=== PATIENT | female | born 1940 | race Caucasian/White ===

== ENCOUNTER 2020-05-07 14:48 | Emergency (ER) | payer MEDICARE, BC ==
[2020-05-07] MEDS ORDERED: Sodium Chloride 0.9% 10 ML Syringe FLUSH PRN (15:02)
[2020-05-07] MEDS: Labetalol 20 MG/4 ML Syringe IVPUSH ONE (15:26)
[2020-05-07 15:34] LABS: CHLORIDE,CL 97 mmol/L (98-107); SODIUM,NA 139 mmol/L (136-145)
[2020-05-07 15:35] LABS: ANION GAP 13.3 mmol/L (10-20)
--- NOTE | 2020-05-07 15:57 | CT ---
[id number] CT/CT Head WO IV EXAM: CT Head WO IV CLINICAL DATA: GAIT DISTURBANCE. COMPARISON STUDY: None FINDINGS: No intracranial hemorrhage, extra-axial fluid collection, mass, or acute ischemia. No hydrocephalus. Mild to moderate changes of chronic small vessel disease. Findings including central prominent diffuse bilateral symmetric parenchymal atrophy as well as gliosis in the subcortical and periventricular white matter. Calvarium intact. Paranasal sinuses and mastoid air cells are clear. IMPRESSION: No acute intracranial findings. Chronic small vessel disease, described above. Torres Eaton MD 05/07/20 1556 Thank you for allowing us to participate in the care of your patient.
--- NOTE | 2020-05-07 16:32 | EDM.PDOC ---
ED HPI GENERAL MEDICAL PROBLEM - General Chief Complaint: Neuro Symptoms/Deficits Stated Complaint: POSSIBLE STROKE Time Seen by Provider: 05/07/20 15:00 Source of Information: Reports: Patient History Limitations: Reports: No Limitations - History of Present Illness INITIAL COMMENTS - FREE TEXT/NARRATIVE: PtClari presents to ER via private vehicle with complaints of R sided paresthesia and decreased coordination of R lower extremity. Onset of symptoms 05/06/2020 at approx. 1500. She states that she was dizzy yesterday at onset of these symptoms, but these symptoms rapidly resolved. She states that she was also having some paresthesia in her R leg, but states that these symptoms stopped around noon today. Denies any headache. She had a watchman device placed in December, and was on eliquis after that. She states that she was transitioned to plavix, and was notified to stop taking that last week. Denies any fever or chills. No cough or chest congestion. Denies any problems w ith speech or ambulation. Denies any history of facial droop. She has been alert to time, date and place. Initial NIH scale was 2, 1 point for sensation and 1 for coordination. She has no pronator drift, lower extremity drift, chest pain or shortness of breath. She currently has a pacemaker. Onset Date: 05/06/20 Location: Reports: Head, Generalized - Related Data Allergies Allergy/AdvReac Type Severity Reaction Status Date / Time lisinopril Allergy Cough Verified 05/07/20 16:20 metronidazole [From Flagyl] Allergy Other Verified 05/07/20 16:20 Adhesive tape Allergy Rash Uncoded 05/07/20 16:20 Xray dye Allergy Anaphylactic Uncoded 05/07/20 16:20 Shock Home Meds: Home Meds Amoxicillin 2 gm PO ASDIRECTED 05/07/20 [History] Aspirin [Aspirin EC] 81 mg PO DAILY 05/07/20 [History] Betamethasone/Clotrimazole [Lotrisone] 1 applic PO BID 05/07/20 [History] Bumetanide [Bumex] 2 mg PO Q2D 05/07/20 [History] Dicyclomine [Bentyl] 10 mg PO QID PRN 05/07/20 [History] Gabapentin [Neurontin] 100 mg PO DAILY 05/07/20 [History] Gabapentin [Neurontin] 300 mg PO BEDTIME 05/07/20 [History] Hydrocodone/Acetaminophen [[place] 5-325 Tablet] 1 tab PO Q6H PRN 05/07/20 [History] Pramipexole [Mirapex] 1 mg PO DAILY 05/07/20 [History] Past Medical History Cardiovascular History: Reports: Afib, Heart Failure, High Cholesterol, Hypertension, Pacemaker, Other (See Below) Other Cardiovascular History: hx atrial tach. PVD. Watchman Musculoskeletal History: Reports: Back Pain, Chronic Neurological History: Reports: Other (See Below) Other Neuro History: Restless legs Endocrine/Metabolic History: Reports: Hypothyroidism Hematologic History: Reports: B12 Deficiency, Other (See Below) Other Hematologic History: MGUS(monoclonal gammopathy of unknown significance) Oncologic (Cancer) History: Reports: Basal Cell Carcinoma Social & Family History - Tobacco Use Tobacco Use Status *Q: Unknown Ever Used Tobacco - Alcohol Use Days Per Week of Alcohol Use: 7 Number of Drinks Per Day: 2 Total Drinks Per Week: 14 - Recreational Drug Use Recreational Drug Use: No ED ROS GENERAL - Review of Systems Review Of Systems: See Below Constitutional: Reports: No Symptoms HEENT: Reports: No Symptoms Respiratory: Reports: No Symptoms Cardiovascular: Reports: No Symptoms Endocrine: Reports: No Symptoms GI/Abdominal: Reports: No Symptoms : Reports: No Symptoms Musculoskeletal: Reports: No Symptoms Skin: Reports: No Symptoms Neurological: Reports: Numbness, Tingling, Weakness Psychiatric: Reports: No Symptoms Hematologic/Lymphatic: Reports: No Symptoms Immunologic: Reports: No Symptoms ED EXAM, GENERAL - Physical Exam Exam: See Below Exam Limited By: No Limitations General Appearance: Alert, WD/WN, No Apparent Distress Eye Exam: Bilateral Eye: EOMI, PERRL Head: Atraumatic, Normocephalic Neck: Normal Inspection, Supple, Non-Tender Respiratory/Chest: No Respiratory Distress, Lungs Clear, No Accessory Muscle Use, Chest Non-Tender Cardiovascular: Normal Peripheral Pulses, Regular Rate, Rhythm, No Edema, No JVD Peripheral Pulses: 4+: Radial (L) GI/Abdominal: Soft, Non-Tender, No Distention, No Mass (Female) Exam: Deferred Rectal (Female) Exam: Deferred Extremities: Normal Inspection, Normal Range of Motion, Non-Tender, Normal Capillary Refill Neurological: Alert, Oriented, CN II-XII Intact, Normal Cognition, Sensory/Motor Deficit, Other (paresthesia to R upper extremity. No pronator drift. No drift in leg. ) Psychiatric: Normal Affect, Normal Mood Skin Exam: Warm, Dry, Intact, Normal Color, No Rash #1 Interpretation EKG Interpretation Comments: Paced/3rd degree heart block Course - Vital Signs Last Recorded V/S: Last Vital Signs Temp 36.0 C L 05/07/20 14:48 Pulse 62 05/07/20 15:26 Resp 20 05/07/20 14:48 BP 154/82 H 05/07/20 16:00 Pulse Ox 92 L 05/07/20 14:48 - Orders/Labs/Meds Orders: Active Orders 24 hr Category Date Time Status EKG Documentation Completion [RC] STAT Care 05/07/20 15:02 Active Sodium Chloride 0.9% [Saline Flush] Med 05/07/20 15:02 Active 10 ml FLUSH ASDIRECTED PRN Peripheral IV Insertion Adult [OM.PC] Routine Oth 05/07/20 15:03 Ordered Medication Orders Sodium Chloride (Saline Flush) 10 ml FLUSH ASDIRECTED PRN PRN Reason: Keep Vein Open Labs: Laboratory Tests 05/07/20 05/07/20 05/07/20 Range/Units 14:56 14:56 14:56 WBC 8.7 (4.0-10.0) x10^3/uL RBC 4.80 (4.00-5.50) x10^6/uL Hgb 16.0 (12.0-16.0) g/dL Hct 48.3 H (33.0-47.0) % MCV 100.6 H (78.0-93.0) fL MCH 33.3 H (26.0-32.0) pg MCHC 33.1 (32.0-36.0) g/dL RDW Coeff of [place] 12.9 (10.0-15.0) % Plt Count 251 (130-400) x10^3/uL Neut % (Auto) 72.6 (50.0-80.0) % Lymph % (Auto) 15.1 L (25.0-50.0) % [place] % (Auto) 10.3 (2.0-11.0) % Eos % (Auto) 1.7 (0.0-4.0) % Baso % (Auto) 0.3 (0.2-1.2) % PT 11.0 (9.5-12.3) SEC INR 1.0 L (2.0-3.5) APTT (25.6-32.8) SEC Sodium 139 (136-145) mmol/L Potassium 3.3 L (3.5-5.1) mmol/L Chloride 97 L (98-107) mmol/L Carbon Dioxide 32 (21-32) mmol/L Anion Gap 13.3 (10-20) mmol/L BUN 14 (7-18) mg/dL Creatinine 1.1 H (0.55-1.02) mg/dL Est Cr Clr Drug Dosing 37.32 mL/min Estimated GFR (MDRD) 48 Glucose 110 H (74-106) mg/dL Calcium 9.6 (8.5-10.1) mg/dL Corrected Calcium 9.60 (8.5-10.1) mg/dL Total Bilirubin 0.9 (0.2-1.0) mg/dL AST 37 (15-37) U/L ALT 29 (14-59) U/L Alkaline Phosphatase 149 H (46-116) U/L Troponin I < 0.017 (<=0.056) ng/mL C-Reactive Protein 0.8 (<=0.9) mg/dL Total Protein 8.1 (6.4-8.2) g/dL Albumin 4.0 (3.4-5.0) g/dL Globulin 4.1 Albumin/Globulin Ratio 0.98 Ethyl Alcohol < 3 (0-3) mg/dL 05/07/20 Range/Units 14:56 WBC (4.0-10.0) x10^3/uL RBC (4.00-5.50) x10^6/uL Hgb (12.0-16.0) g/dL Hct (33.0-47.0) % MCV (78.0-93.0) fL MCH (26.0-32.0) pg MCHC (32.0-36.0) g/dL RDW Coeff of [place] (10.0-15.0) % Plt Count (130-400) x10^3/uL Neut % (Auto) (50.0-80.0) % Lymph % (Auto) (25.0-50.0) % [place] % (Auto) (2.0-11.0) % Eos % (Auto) (0.0-4.0) % Baso % (Auto) (0.2-1.2) % PT (9.5-12.3) SEC INR (2.0-3.5) APTT 26.7 (25.6-32.8) SEC Sodium (136-145) mmol/L Potassium (3.5-5.1) mmol/L Chloride (98-107) mmol/L Carbon Dioxide (21-32) mmol/L Anion Gap (10-20) mmol/L BUN (7-18) mg/dL Creatinine (0.55-1.02) mg/dL Est Cr Clr Drug Dosing mL/min Estimated GFR (MDRD) Glucose (74-106) mg/dL Calcium (8.5-10.1) mg/dL Corrected Calcium (8.5-10.1) mg/dL Total Bilirubin (0.2-1.0) mg/dL AST (15-37) U/L ALT (14-59) U/L Alkaline Phosphatase (46-116) U/L Troponin I (<=0.056) ng/mL C-Reactive Protein (<=0.9) mg/dL Total Protein (6.4-8.2) g/dL Albumin (3.4-5.0) g/dL Globulin Albumin/Globulin Ratio Ethyl Alcohol (0-3) mg/dL Meds: Medications Generic Name Dose Route Start Last Admin Trade Name Freq PRN Reason Stop Dose Admin Sodium Chloride 10 ml 05/07/20 15:02 Saline Flush FLUSH ASDIRECTED PRN Keep Vein Open Discontinued Medications Generic Name Dose Route Start Last Admin Trade Name Freq PRN Reason Stop Dose Admin Labetalol HCl 20 mg 05/07/20 15:04 05/07/20 15:26 Normodyne IVPUSH 05/07/20 15:05 10 mg NOW ONE Administration Protocol Departure - Departure Time of Disposition: 16:36 Disposition: DC/Tfer to [facility] 02 Clinical Impression: CVA (cerebral vascular accident) - Discharge Information Sepsis Event Note (ED) - Evaluation Sepsis Screening Result: No Definite Risk - Focused Exam Vital Signs: Vital Signs Temp Pulse Resp BP Pulse Ox 05/07/20 16:00 154/82 H 05/07/20 15:45 182/99 H 05/07/20 15:26 62 175/84 H 05/07/20 14:55 192/85 H 05/07/20 14:48 36.0 C L 88 20 207/114 H 92 L - Problem List Review Problem List Initiated/Reviewed/Updated: Yes - My Orders Last 24 Hours: My Active Orders 05/07/20 15:02 EKG Documentation Completion [RC] STAT Sodium Chloride 0.9% [Saline Flush] 10 ml FLUSH ASDIRECTED PRN 05/07/20 15:03 Peripheral IV Insertion Adult [OM.PC] Routine - Assessment/Plan Last 24 Hours: My Active Orders 05/07/20 15:02 EKG Documentation Completion [RC] STAT Sodium Chloride 0.9% [Saline Flush] 10 ml FLUSH ASDIRECTED PRN 05/07/20 15:03 Peripheral IV Insertion Adult [OM.PC] Routine Plan: Pt. will be transferred to [facility] in [place]. Dr. Becerra is accepting. Pt. does not meet criteria for TPA/intervention, as her symptoms have been present for over 24 hours. Pt. will need an echo, carotid US, and further workup. All questions were answered.
== END 2020-05-07 17:40 | disposition short-term general hospital (02) ==
LOC: VM.ED 14:48
DX: I63.9 Cerebral infarction, unspecified (principal); I48.91 Unspecified atrial fibrillation; I11.0 Hypertensive heart disease with heart failure; I50.9 Heart failure, unspecified; Z88.8 Allergy status to other drugs, medicaments and biological substances; Z88.1 Allergy status to other antibiotic agents; Z91.048 Other nonmedicinal substance allergy status; Z91.041 Radiographic dye allergy status; Z79.82 Long term (current) use of aspirin; Z79.899 Other long term (current) drug therapy
CPT/HCPCS: 36415; 70450; 80053; 80307; 84484; 85025; 85610; 85730; 86140; 93005; 93010; 96374; 99284; 99285-25; J3490

== ENCOUNTER 2020-06-22 15:44 | Emergency (ER) | payer MEDICARE, BC ==
[2020-06-22] MEDS: Sodium Chloride 0.9% 1,000 ML IV ONE ×2 (15:55→18:43)
[2020-06-22] MEDS ORDERED: Sodium Chloride 0.9% 10 ML Syringe FLUSH PRN (16:05)
[2020-06-22] MEDS ORDERED: Ondansetron 4 MG/2 ML SDV IVPUSH ONE (16:05)
--- NOTE | 2020-06-22 16:28 | EDM.PDOC ---
ED HPI GENERAL MEDICAL PROBLEM - General Chief Complaint: Gastrointestinal Problem Stated Complaint: LATHARGIC Time Seen by Provider: 06/22/20 15:48 Source of Information: Reports: Patient - History of Present Illness INITIAL COMMENTS - FREE TEXT/NARRATIVE: Kusum is a 79 y/o female who is brought to the ER by her neurosurgical nurse practitioner, Yovanny, after she became so tired and developed the diarrhea. She reports not feeling well on Sunday night and she started to feel more tired and then had an upset stomach. On Sunday, she continued to have an upset stomach and was very nauseated. She felt like vomiting, but did not, then today she continued to have an upset stomach and then started to have the diarrhea. She reports going 5 times today and feeling worse. She is very tired and reports just wanting to sleep. She has felt hot and cold. Lower Abdominal Pain Score (Numeric/FACES): 6 - Related Data Allergies Allergy/AdvReac Type Severity Reaction Status Date / Time lisinopril Allergy Cough Verified 06/22/20 16:06 metoprolol Allergy Headache Verified 06/22/20 16:06 metronidazole [From Flagyl] Allergy Other Verified 06/22/20 16:06 Adhesive tape Allergy Rash Uncoded 05/07/20 16:20 Xray dye Allergy Anaphylactic Uncoded 05/07/20 16:20 Shock Home Meds: Home Meds Amoxicillin 2 gm PO ASDIRECTED 05/07/20 [History] Aspirin [Aspirin EC] 81 mg PO DAILY 05/07/20 [History] Betamethasone/Clotrimazole [Lotrisone] 1 applic PO BID 05/07/20 [History] Bumetanide [Bumex] 2 mg PO Q2D 05/07/20 [History] Dicyclomine [Bentyl] 10 mg PO QID PRN 05/07/20 [History] Gabapentin [Neurontin] 100 mg PO BID 05/07/20 [History] Gabapentin [Neurontin] 300 mg PO BEDTIME 05/07/20 [History] Hydrocodone/Acetaminophen [[place] 5-325 Tablet] 1 tab PO Q6H PRN 05/07/20 [History] Pramipexole [Mirapex] 1 mg PO DAILY 05/07/20 [History] Apixaban [Eliquis] 5 mg PO BID 06/22/20 [History] Hydrocortisone [Hydrocortisone 2.5% Crm] 30 gm TOP BID PRN 06/22/20 [History] Nitroglycerin [Nitrostat] 0.4 mg SL ASDIRECTED PRN 06/22/20 [History] Ondansetron [Ondansetron ODT] 4 mg PO Q6H PRN #15 tab.rapdis 06/22/20 [Rx] Triamcinolone Acetonide [Kenalog 0.1% Crm] 15 gm TOP BID 06/22/20 [History] metroNIDAZOLE [Metrogel-Vaginal] 70 gm TOP DAILY 06/22/20 [History] Past Medical History Cardiovascular History: Reports: Afib, Heart Failure, High Cholesterol, Hypertension, Pacemaker, Other (See Below) Other Cardiovascular History: hx atrial tach. PVD. Watchman Musculoskeletal History: Reports: Back Pain, Chronic Neurological History: Reports: Other (See Below) Other Neuro History: Restless legs Endocrine/Metabolic History: Reports: Hypothyroidism Hematologic History: Reports: B12 Deficiency, Other (See Below) Other Hematologic History: MGUS(monoclonal gammopathy of unknown significance) Oncologic (Cancer) History: Reports: Basal Cell Carcinoma Review of Systems - Review of Systems Review Of Systems: See Below Constitutional: Reports: Chills, Fever, Weakness Eyes: Reports: No Symptoms Ears: Reports: No Symptoms Nose: Reports: No Symptoms Mouth/Throat: Reports: No Symptoms Respiratory: Reports: No Symptoms Cardiovascular: Reports: No Symptoms GI/Abdominal: Reports: Abdominal Pain, Decreased Appetite, Diarrhea, Nausea Genitourinary: Reports: No Symptoms Musculoskeletal: Reports: No Symptoms Skin: Reports: No Symptoms Neurological: Reports: No Symptoms Psychiatric: Reports: No Symptoms ED EXAM, GENERAL - Physical Exam Exam: See Below General Appearance: Alert, WD/WN, No Apparent Distress (Elderly female, lying on ER cart. She is curled up on her side and does not appear to feel well, alt jane she does wake up and answer questions.) Eye Exam: Bilateral Eye: PERRL Ears: Normal External Exam, Normal Canal, Hearing Grossly Normal, Normal TMs Nose: Normal Inspection, Normal Mucosa Throat/Mouth: Normal Inspection, Normal Lips, Normal Oropharynx, Normal Voice Head: Atraumatic, Normocephalic Neck: Normal Inspection, Supple Respiratory/Chest: No Respiratory Distress, Lungs Clear, Normal Breath Sounds, Chest Non-Tender Cardiovascular: Normal Peripheral Pulses, Regular Rate, Rhythm GI/Abdominal: Soft, No Organomegaly, No Distention, No Mass, Abnormal Bowel Sounds (hyperactive) (Female) Exam: Deferred Rectal (Female) Exam: Deferred Back Exam: Normal Inspection Extremities: Normal Inspection, Normal Range of Motion, No Pedal Edema, Normal Capillary Refill Neurological: Alert, Oriented, CN II-XII Intact, Normal Cognition, No Motor/ Sensory Deficits Psychiatric: Normal Affect, Normal Mood Skin Exam: Warm, Dry, Intact, Normal Color Lymphatic: No Adenopathy Course - Vital Signs Text/Narrative:: 1548 The patient was seen by the LIVE IN CAREGIVER. Labs ordered. She was given a lier of NS and Zofran 4mg IVP. 1829 IV fluids completed.Labs reviewed. CBC neg. CMP notes AST=42, Snzwst=865, Wspqmer=403. Amylase=20, Lipae=93. CRP=1.0. Patient not feeling much better. Compazine 10mg IVP ordered and additional NS. Abd/Pelvis W Contrast CT ordered. [address] results returned and negative study noted. Patient rested and now reports that she is feeling better. Feel like she can go home and rest. Other than a very mild decrease in her sodium, all other labs including her UA were negative. Her questions were answered. Will plan to send her home when her neurosurgical nurse practitioner gets here to the ER. Will send her with Zofran ODT. Stool Cx was submitted to lab and results pending. Patient remained stable until departure with her neurosurgical nurse practitioner, Yovanny. She was given written instructions. Last Recorded V/S: Last Vital Signs Temp 36.9 C 06/22/20 15:50 Pulse 72 06/22/20 17:50 Resp 16 06/22/20 17:50 BP 156/88 H 06/22/20 17:50 Pulse Ox 97 06/22/20 17:50 - Orders/Labs/Meds Orders: Active Orders 24 hr Category Date Time Status MISC TEST Routine Lab 06/22/20 16:40 Received STOOL CULTURE [MREF] Stat Lab 06/22/20 16:40 Received Sodium Chloride 0.9% [Saline Flush] Med 06/22/20 16:05 Active 10 ml FLUSH ASDIRECTED PRN Saline Lock Insert [OM.PC] Stat Oth 06/22/20 16:05 Ordered Medication Orders Sodium Chloride (Saline Flush) 10 ml FLUSH ASDIRECTED PRN PRN Reason: Keep Vein Open Labs: Laboratory Tests 06/22/20 06/22/20 06/22/20 Range/Units 15:40 15:50 15:50 WBC 9.0 (4.0-10.0) x10^3/uL RBC 4.66 (4.00-5.50) x10^6/uL Hgb 15.4 (12.0-16.0) g/dL Hct 46.7 (33.0-47.0) % MCV 100.2 H (78.0-93.0) fL MCH 33.0 H (26.0-32.0) pg MCHC 33.0 (32.0-36.0) g/dL RDW Coeff of [place] 12.3 (10.0-15.0) % Plt Count 249 (130-400) x10^3/uL Neut % (Auto) 80.2 H (50.0-80.0) % Lymph % (Auto) 10.8 L (25.0-50.0) % [place] % (Auto) 7.9 (2.0-11.0) % Eos % (Auto) 0.9 (0.0-4.0) % Baso % (Auto) 0.2 (0.2-1.2) % Sodium 135 L (136-145) mmol/L Potassium 4.1 (3.5-5.1) mmol/L Chloride 101 (98-107) mmol/L Carbon Dioxide 28 (21-32) mmol/L Anion Gap 10.1 (5-15) mmol/L BUN 9 (7-18) mg/dL Creatinine 0.9 (0.55-1.02) mg/dL Est Cr Clr Drug Dosing 45.61 mL/min Estimated GFR (MDRD) > 60 Glucose 129 H (74-106) mg/dL Calcium 9.5 (8.5-10.1) mg/dL Corrected Calcium 9.74 (8.5-10.1) mg/dL Magnesium 2.0 (1.8-2.4) mg/dL Total Bilirubin 1.2 H (0.2-1.0) mg/dL AST 43 H (15-37) U/L ALT 46 (14-59) U/L Alkaline Phosphatase 165 H (46-116) U/L C-Reactive Protein 1.0 H (<=0.9) mg/dL Total Protein 7.9 (6.4-8.2) g/dL Albumin 3.7 (3.4-5.0) g/dL Globulin 4.2 Albumin/Globulin Ratio 0.88 Amylase 20 L (25-115) U/L Lipase 93 (73-393) U/L Urine Color (YELLOW) Urine Appearance (CLEAR) Urine pH (5.0-8.0) Ur Specific [place] Urine Protein (NEGATIVE) mg/dL Urine Glucose (UA) (NEGATIVE) mg/dL Urine Ketones (NEGATIVE) mg/dL Urine Occult Blood (NEGATIVE) Urine Nitrite (NEGATIVE) Urine Bilirubin (NEGATIVE) Urine Urobilinogen (0.2) EU/dL Ur Leukocyte Esterase (NEGATIVE) Urine RBC (NOT SEEN) /HPF Urine WBC (NOT SEEN) /HPF Ur Squamous Epith Cells (NEGATIVE) /HPF Urine Bacteria (NEGATIVE) /HPF Urine Mucus (NEGATIVE) /LPF Urinalysis Comment SARS CoV-2 RNA Rapid SAMANTA Negative (NEGATIVE) 06/22/20 Range/Units 16:40 WBC (4.0-10.0) x10^3/uL RBC (4.00-5.50) x10^6/uL Hgb (12.0-16.0) g/dL Hct (33.0-47.0) % MCV (78.0-93.0) fL MCH (26.0-32.0) pg MCHC (32.0-36.0) g/dL RDW Coeff of [place] (10.0-15.0) % Plt Count (130-400) x10^3/uL Neut % (Auto) (50.0-80.0) % Lymph % (Auto) (25.0-50.0) % [place] % (Auto) (2.0-11.0) % Eos % (Auto) (0.0-4.0) % Baso % (Auto) (0.2-1.2) % Sodium (136-145) mmol/L Potassium (3.5-5.1) mmol/L Chloride (98-107) mmol/L Carbon Dioxide (21-32) mmol/L Anion Gap (5-15) mmol/L BUN (7-18) mg/dL Creatinine (0.55-1.02) mg/dL Est Cr Clr Drug Dosing mL/min Estimated GFR (MDRD) Glucose (74-106) mg/dL Calcium (8.5-10.1) mg/dL Corrected Calcium (8.5-10.1) mg/dL Magnesium (1.8-2.4) mg/dL Total Bilirubin (0.2-1.0) mg/dL AST (15-37) U/L ALT (14-59) U/L Alkaline Phosphatase (46-116) U/L C-Reactive Protein (<=0.9) mg/dL Total Protein (6.4-8.2) g/dL Albumin (3.4-5.0) g/dL Globulin Albumin/Globulin Ratio Amylase (25-115) U/L Lipase (73-393) U/L Urine Color Yellow (YELLOW) Urine Appearance Cloudy H (CLEAR) Urine pH 8.5 H (5.0-8.0) Ur Specific [place] 1.025 Urine Protein 100 H (NEGATIVE) mg/dL Urine Glucose (UA) Negative (NEGATIVE) mg/dL Urine Ketones Negative (NEGATIVE) mg/dL Urine Occult Blood Trace-intact H (NEGATIVE) Urine Nitrite Negative (NEGATIVE) Urine Bilirubin Negative (NEGATIVE) Urine Urobilinogen 0.2 (0.2) EU/dL Ur Leukocyte Esterase Negative (NEGATIVE) Urine RBC 0-5 (NOT SEEN) /HPF Urine WBC 0-5 (NOT SEEN) /HPF Ur Squamous Epith Cells Rare (NEGATIVE) /HPF Urine Bacteria Not seen (NEGATIVE) /HPF Urine Mucus Not seen (NEGATIVE) /LPF Urinalysis Comment See note SARS CoV-2 RNA Rapid SAMANTA (NEGATIVE) Meds: Medications Generic Name Dose Route Start Last Admin Trade Name Freq PRN Reason Stop Dose Admin Sodium Chloride 10 ml 06/22/20 16:05 Saline Flush FLUSH ASDIRECTED PRN Keep Vein Open Discontinued Medications Generic Name Dose Route Start Last Admin Trade Name Freq PRN Reason Stop Dose Admin Sodium Chloride 1,000 mls @ 999 mls/hr 06/22/20 16:05 06/22/20 18:43 Normal Saline IV 06/22/20 17:05 999 mls/hr ONETIME ONE Administration Iopamidol 100 ml 06/22/20 19:02 06/22/20 19:03 Isovue-300 (61%) IVPUSH 06/22/20 19:03 100 ml ONETIME ONE Administration Ketorolac Tromethamine 15 mg 06/22/20 18:36 06/22/20 18:43 Toradol IVPUSH 06/22/20 18:37 15 mg ONETIME ONE Administration Ondansetron HCl 4 mg 06/22/20 16:05 06/22/20 16:35 Zofran IVPUSH 06/22/20 16:06 4 mg ONETIME ONE Administration Prochlorperazine Edisylate 10 mg 06/22/20 18:36 06/22/20 18:43 Compazine IV 06/22/20 18:37 10 mg ONETIME ONE Administration Departure - Departure Time of Disposition: 19:48 Disposition: Home, Self-Care 01 Condition: Good Clinical Impression: Diarrhea, Nausea - Discharge Information *PRESCRIPTION DRUG MONITORING PROGRAM REVIEWED*: Not Applicable *COPY OF PRESCRIPTION DRUG MONITORING REPORT IN PATIENT [place]: Not Applicable Prescriptions: RX: Ondansetron [Ondansetron ODT] 4 mg PO Q6H PRN #15 tab.rapdis PRN Reason: Nausea Instructions: Diarrhea, Adult, Nausea, Adult, [id number] Referrals: Mac Novak NP [Primary Care Provider] - Forms: ED Department Discharge Additional Instructions: -Ondanestron ODT 4mg orall every 4-6 hours as needed for nausea #2(ER) #15(Rx) -Stay well hydrated. Advance your diet as you are able. -Rest as much as you need to. -If your symptoms are worse or you are not improving, follow up with your primary care provider or return to the ER for any concerns. Sepsis Event Note (ED) - Focused Exam Vital Signs: Vital Signs Temp Pulse Resp BP Pulse Ox 06/22/20 17:50 72 16 156/88 H 97 06/22/20 15:50 36.9 C 79 16 176/90 H 97 - My Orders Last 24 Hours: My Active Orders 06/22/20 16:05 Sodium Chloride 0.9% [Saline Flush] 10 ml FLUSH ASDIRECTED PRN Saline Lock Insert [OM.PC] Stat 06/22/20 16:40 MISC TEST Routine STOOL CULTURE [MREF] Stat - Assessment/Plan Last 24 Hours: My Active Orders 06/22/20 16:05 Sodium Chloride 0.9% [Saline Flush] 10 ml FLUSH ASDIRECTED PRN Saline Lock Insert [OM.PC] Stat 06/22/20 16:40 MISC TEST Routine STOOL CULTURE [MREF] Stat
[2020-06-22 16:31] LABS: CHLORIDE,CL 101 mmol/L (98-107); SODIUM,NA 135 mmol/L (136-145)
[2020-06-22 16:33] LABS: ANION GAP 10.1 mmol/L (5-15)
[2020-06-22] MEDS ORDERED: Ketorolac 30 MG/ML SDV IVPUSH ONE (18:36)
[2020-06-22] MEDS ORDERED: Prochlorperazine 10 MG/2 ML SDV IV ONE (18:36)
[2020-06-22] MEDS ORDERED: Iopamidol 612 MG/ML 100 ML Bottle IVPUSH ONE (19:02)
--- NOTE | 2020-06-22 19:29 | CT ---
[id number] CT/CT Abdomen Pelvis W IV EXAM: CT Abdomen Pelvis W IV CLINICAL DATA: ABDOMINAL PAIN DIARRHEA COMPARISON: NO PREVIOUS SIMILAR EXAM IS AVAILABLE. FINDINGS: The liver and spleen are unremarkable. The kidneys and adrenals show no abnormality. The aorta and pancreas are within normal limits. There is no bowel distention. There is no bowel wall thickening either. There is no free fluid or free air. There is no adenopathy. The pelvis shows no mass, free fluid, abscess, inflammatory change, or adenopathy. The gallbladder, appendix, uterus, and ovaries are not seen Imaging was limited primarily to arterial phase IMPRESSION: NO ACUTE PROCESS. Eduardo Wolf MD 06/22/20 [id number] Thank you for allowing us to participate in the care of your patient.
[2020-06-22] MEDS ORDERED: Take Home: Ondansetron 4 MG Tab.DIS, 2 Tab Pack PO ONE (19:49)
== END 2020-06-22 20:07 | disposition home or self-care (01) ==
LOC: VM.ED 15:44
DX: R19.7 Diarrhea, unspecified (principal); R11.0 Nausea; I48.91 Unspecified atrial fibrillation; E78.00 Pure hypercholesterolemia, unspecified; I11.0 Hypertensive heart disease with heart failure; I50.9 Heart failure, unspecified; E03.9 Hypothyroidism, unspecified; Z20.822 Contact with and (suspected) exposure to COVID-19; Z88.8 Allergy status to other drugs, medicaments and biological substances; Z91.041 Radiographic dye allergy status; Z91.048 Other nonmedicinal substance allergy status; Z79.82 Long term (current) use of aspirin; Z79.01 Long term (current) use of anticoagulants; Z79.899 Other long term (current) drug therapy; Z88.1 Allergy status to other antibiotic agents
CPT/HCPCS: 74177; 80053; 81001; 82150; 83690; 83735; 85025; 86140; 87045; 87046; 96374; 96375; 99284; 99284-25; A9270-GY; J0780; J1885; J2405; J7030; Q9967; U0002

== ENCOUNTER 2020-07-24 17:27 | Emergency (ER) | payer MEDICARE, BC ==
--- NOTE | 2020-07-24 17:56 | EDM.PDOC ---
ED HPI GENERAL MEDICAL PROBLEM - General Stated Complaint: stomach hurts Time Seen by Provider: 07/24/20 17:30 Source of Information: Reports: Patient History Limitations: Reports: No Limitations - History of Present Illness INITIAL COMMENTS - FREE TEXT/NARRATIVE: Patient comes emergency department today with complaints of urinary frequency and dysuria and back pain. This patient has had kind of a bilateral mid back pain for the past couple of months even before her last ER visit in June last month. After her ER visit she continued to have the mid back pain and has gotten worse since a fall a few days after the ER visit in june when she was walking on the steps fell landing on her buttocks and has had same but worse pain in the mid back . Today she noticed that she had urinary frequency and dysuria. She has chills no fevers. Nausea and upset stomach without vomiting. No chest pain no shortness of breath or difficulty breathing. No cough or congestion. No vaginal bleeding or discharge. No rectal bleeding. No diarrhea. No black or tarry stools. No Covid exposure no Covid symptoms. She has had a urinary tract infection in the past with sepsis and is concerns for that. Abdominal Pain Score (Numeric/FACES): 6 - Related Data Allergies Allergy/AdvReac Type Severity Reaction Status Date / Time lisinopril Allergy Cough Verified 07/25/20 01:16 metoprolol Allergy Headache Verified 07/25/20 01:16 metronidazole [From Flagyl] Allergy Other Verified 07/25/20 01:16 Adhesive tape Allergy Rash Uncoded 07/25/20 01:16 Xray dye Allergy Anaphylactic Uncoded 07/25/20 01:16 Shock Home Meds: Home Meds Amoxicillin 2 gm PO ASDIRECTED 05/07/20 [History] Aspirin [Aspirin EC] 81 mg PO DAILY 05/07/20 [History] Betamethasone/Clotrimazole [Lotrisone] 1 applic PO BID 05/07/20 [History] Bumetanide [Bumex] 2 mg PO Q2D 05/07/20 [History] Dicyclomine [Bentyl] 10 mg PO QID PRN 05/07/20 [History] Gabapentin [Neurontin] 100 mg PO BID 05/07/20 [History] Gabapentin [Neurontin] 300 mg PO BEDTIME 05/07/20 [History] Hydrocodone/Acetaminophen [[place] 5-325 Tablet] 1 tab PO Q6H PRN 05/07/20 [History] Pramipexole [Mirapex] 1 mg PO DAILY 05/07/20 [History] Apixaban [Eliquis] 5 mg PO BID 06/22/20 [History] Hydrocortisone [Hydrocortisone 2.5% Crm] 30 gm TOP BID PRN 06/22/20 [History] Nitroglycerin [Nitrostat] 0.4 mg SL ASDIRECTED PRN 06/22/20 [History] Ondansetron [Ondansetron ODT] 4 mg PO Q6H PRN #15 tab.rapdis 06/22/20 [Rx] Triamcinolone Acetonide [Kenalog 0.1% Crm] 15 gm TOP BID 06/22/20 [History] metroNIDAZOLE [Metrogel-Vaginal] 70 gm TOP DAILY 06/22/20 [History] Fluconazole [Diflucan] 100 mg PO DAILY #14 tablet 07/24/20 [Rx] Past Medical History Cardiovascular History: Reports: Afib, Heart Failure, High Cholesterol, Hypertension, Pacemaker, Other (See Below) Other Cardiovascular History: hx atrial tach. PVD. Watchman Musculoskeletal History: Reports: Back Pain, Chronic Neurological History: Reports: CVA, Other (See Below) Other Neuro History: Restless legs Endocrine/Metabolic History: Reports: Hypothyroidism Hematologic History: Reports: B12 Deficiency, Other (See Below) Other Hematologic History: MGUS(monoclonal gammopathy of unknown significance) Oncologic (Cancer) History: Reports: Basal Cell Carcinoma - Past Surgical History Cardiovascular Surgical History: Reports: Pacer ED ROS GENERAL - Review of Systems Review Of Systems: Comprehensive ROS is negative, except as noted in HPI. ED EXAM, RENAL/ - Physical Exam Exam: See Below Exam Limited By: No Limitations General Appearance: Alert, WD/WN, No Apparent Distress Eye Exam: Bilateral Eye: EOMI Ears: Hearing Loss Nose: Normal Inspection Throat/Mouth: Normal Inspection Head: Atraumatic Respiratory/Chest: No Respiratory Distress, Lungs Clear, Normal Breath Sounds, No Accessory Muscle Use, Chest Non-Tender Cardiovascular: Normal Peripheral Pulses, Regular Rate, Rhythm GI/Abdominal: Normal Bowel Sounds, Soft, Non-Tender (Female) Exam: Deferred Rectal (Female) Exam: Deferred Back Exam: Normal Inspection (other than CVA tenderness), Full Range of Motion, CVA Tenderness (L), CVA Tenderness (R). No: Paraspinal Tenderness, Vertebral Tenderness Extremities: Normal Inspection, Normal Range of Motion, Normal Capillary Refill Neurological: Alert, Oriented, CN II-XII Intact, Normal Cognition, No Mo tor/Sensory Deficits Psychiatric: Normal Affect, Normal Mood Skin Exam: Warm, Dry, Intact, Normal Color, No Rash Course - Vital Signs Last Recorded V/S: Last Vital Signs Temp 98.0 F 07/24/20 17:58 Pulse 60 07/24/20 18:22 Resp 16 07/24/20 18:22 BP 180/97 H 07/24/20 20:33 Pulse Ox 95 07/24/20 18:22 - Orders/Labs/Meds Orders: Active Orders 24 hr Category Date Time Status Abdomen Pelvis wo Cont [CT] Stat Exams 07/24/20 18:32 Taken CULTURE BLOOD [BC] Stat Lab 07/24/20 17:52 Results CULTURE BLOOD [BC] Stat Lab 07/24/20 18:03 Results Blood Culture x2 Reflex Set [OM.PC] Stat Oth 07/24/20 17:42 Ordered Peripheral IV Insertion Adult [OM.PC] Stat Oth 07/24/20 17:41 Ordered Labs: Laboratory Tests 07/24/20 07/24/20 07/24/20 Range/Units 17:35 17:52 17:52 WBC 8.5 (4.0-10.0) x10^3/uL RBC 4.97 (4.00-5.50) x10^6/uL Hgb 16.0 (12.0-16.0) g/dL Hct 48.1 H (33.0-47.0) % MCV 96.8 H D (78.0-93.0) fL MCH 32.2 H (26.0-32.0) pg MCHC 33.3 (32.0-36.0) g/dL RDW Coeff of Osman 12.6 (10.0-15.0) % Plt Count 298 (130-400) x10^3/uL Neut % (Auto) 80.3 H (50.0-80.0) % Lymph % (Auto) 11.9 L (25.0-50.0) % Larue % (Auto) 6.6 (2.0-11.0) % Eos % (Auto) 0.8 (0.0-4.0) % Baso % (Auto) 0.4 (0.2-1.2) % Sodium 137 (136-145) mmol/L Potassium 4.3 (3.5-5.1) mmol/L Chloride 100 (98-107) mmol/L Carbon Dioxide 26 (21-32) mmol/L Anion Gap 15.3 H (5-15) mmol/L BUN 11 (7-18) mg/dL Creatinine 1.0 (0.55-1.02) mg/dL Est Cr Clr Drug Dosing 41.05 mL/min Estimated GFR (MDRD) 53 Glucose 127 H (74-106) mg/dL Lactic Acid (0.4-2.0) mmol/L Calcium 9.6 (8.5-10.1) mg/dL Corrected Calcium 9.76 (8.5-10.1) mg/dL Total Bilirubin 1.0 (0.2-1.0) mg/dL AST 46 H (15-37) U/L ALT 34 (14-59) U/L Alkaline Phosphatase 197 H (46-116) U/L C-Reactive Protein 0.8 (<=0.9) mg/dL Total Protein 8.2 (6.4-8.2) g/dL Albumin 3.8 (3.4-5.0) g/dL Globulin 4.4 Albumin/Globulin Ratio 0.86 Lipase (73-393) U/L Urine Color Yellow (YELLOW) Urine Appearance Cloudy H (CLEAR) Urine pH 5.5 (5.0-8.0) Ur Specific [place] >=1.030 Urine Protein 100 H (NEGATIVE) mg/dL Urine Glucose (UA) Negative (NEGATIVE) mg/dL Urine Ketones Trace H (NEGATIVE) mg/dL Urine Occult Blood Small H (NEGATIVE) Urine Nitrite Negative (NEGATIVE) Urine Bilirubin Moderate H (NEGATIVE) Urine Urobilinogen 0.2 (0.2) EU/dL Ur Leukocyte Esterase Negative (NEGATIVE) Urine RBC 0-5 (NOT SEEN) /HPF Urine WBC 0-5 (NOT SEEN) /HPF Ur Squamous Epith Cells Many H (NEGATIVE) /HPF Urine Bacteria Not seen (NEGATIVE) /HPF Urine Mucus Rare H (NEGATIVE) /LPF Urine Yeast (Budding) Many Urinalysis Comment See note 07/24/20 07/24/20 Range/Units 17:52 17:52 WBC (4.0-10.0) x10^3/uL RBC (4.00-5.50) x10^6/uL Hgb (12.0-16.0) g/dL Hct (33.0-47.0) % MCV (78.0-93.0) fL MCH (26.0-32.0) pg MCHC (32.0-36.0) g/dL RDW Coeff of Osman (10.0-15.0) % Plt Count (130-400) x10^3/uL Neut % (Auto) (50.0-80.0) % Lymph % (Auto) (25.0-50.0) % Larue % (Auto) (2.0-11.0) % Eos % (Auto) (0.0-4.0) % Baso % (Auto) (0.2-1.2) % Sodium (136-145) mmol/L Potassium (3.5-5.1) mmol/L Chloride (98-107) mmol/L Carbon Dioxide (21-32) mmol/L Anion Gap (5-15) mmol/L BUN (7-18) mg/dL Creatinine (0.55-1.02) mg/dL Est Cr Clr Drug Dosing mL/min Estimated GFR (MDRD) Glucose (74-106) mg/dL Lactic Acid 1.2 (0.4-2.0) mmol/L Calcium (8.5-10.1) mg/dL Corrected Calcium (8.5-10.1) mg/dL Total Bilirubin (0.2-1.0) mg/dL AST (15-37) U/L ALT (14-59) U/L Alkaline Phosphatase (46-116) U/L C-Reactive Protein (<=0.9) mg/dL Total Protein (6.4-8.2) g/dL Albumin (3.4-5.0) g/dL Globulin Albumin/Globulin Ratio Lipase 100 (73-393) U/L Urine Color (YELLOW) Urine Appearance (CLEAR) Urine pH (5.0-8.0) Ur Specific [place] Urine Protein (NEGATIVE) mg/dL Urine Glucose (UA) (NEGATIVE) mg/dL Urine Ketones (NEGATIVE) mg/dL Urine Occult Blood (NEGATIVE) Urine Nitrite (NEGATIVE) Urine Bilirubin (NEGATIVE) Urine Urobilinogen (0.2) EU/dL Ur Leukocyte Esterase (NEGATIVE) Urine RBC (NOT SEEN) /HPF Urine WBC (NOT SEEN) /HPF Ur Squamous Epith Cells (NEGATIVE) /HPF Urine Bacteria (NEGATIVE) /HPF Urine Mucus (NEGATIVE) /LPF Urine Yeast (Budding) Urinalysis Comment Meds: Medications Discontinued Medications Generic Name Dose Route Start Last Admin Trade Name Freq PRN Reason Stop Dose Admin Hydrocodone Bitart/Acetaminophen 2 packet 07/24/20 21:03 07/24/20 21:22 Take Home: Acetam/Hydrocodon 325-5 Mg, 5 Pack PO 07/24/20 21:04 2 packet ONETIME ONE Administration Aspirin 324 mg 07/24/20 20:53 07/24/20 21:26 Aspirin PO 07/24/20 20:54 Not Given ONETIME ONE Ceftriaxone Sodium 1 gm 07/24/20 17:42 07/24/20 18:20 Rocephin IVPUSH 07/24/20 17:43 1 gm STAT ONE Administration Diphenhydramine HCl 25 mg 07/24/20 20:00 07/24/20 20:20 Benadryl IVPUSH 07/24/20 20:01 25 mg ONETIME ONE Administration Fluconazole 200 mg 07/24/20 20:15 07/24/20 20:25 Diflucan PO 07/24/20 20:16 200 mg ONETIME ONE Administration Fluconazole 200 mg 07/24/20 21:04 07/24/20 21:22 Diflucan PO 07/24/20 21:05 200 mg ONETIME ONE Administration Hydromorphone HCl 0.5 mg 07/24/20 20:11 07/24/20 20:25 Dilaudid IV 07/24/20 20:12 0.5 mg ONETIME ONE Administration Lactated Ringer's 1,000 mls @ 999 mls/hr 07/24/20 18:32 07/24/20 18:39 Ringers, Lactated IV 07/24/20 19:32 999 mls/hr ONETIME ONE Administration Lactated Ringer's 1,000 mls @ 150 mls/hr 07/24/20 20:15 07/24/20 20:20 Ringers, Lactated IV 150 mls/hr ASDIRECTED LAY Administration Ketorolac Tromethamine 15 mg 07/24/20 18:32 07/24/20 18:39 Toradol IVPUSH 07/24/20 18:33 15 mg ONETIME ONE Administration Ondansetron HCl 4 mg 07/24/20 18:06 07/24/20 18:13 Zofran IV 07/24/20 18:07 4 mg ONETIME ONE Administration Ondansetron HCl 2 packet 07/24/20 21:03 07/24/20 21:22 Take Home: Ondansetron Odt 4 Mg, 2 Tab Pack PO 07/24/20 21:04 2 packet ONETIME ONE Administration Sodium Chloride 10 ml 07/24/20 17:41 07/24/20 18:21 Saline Flush FLUSH 10 ml ASDIRECTED PRN Administration Keep Vein Open - Radiology Interpretation Free Text/Narrative:: CT of the abdomen pelvis without contrast per radiology shows no evidence of urinary tract calculi or obstruction. Possible mild early changes of pancreatitis in the pancreas had not seen previously. New L2 superior endplate compression fracture with mild loss of vertebral body height. Findings were not seen previously. Stranding adjacent to the abnormal vertebral body suggest an acute fracture correlate for back pain. - Re-Assessments/Exams Free Text/Narrative Re-Assessment/Exam: 07/24/20 17:56 UA ordered. IV inserted. Blood cultures x 2 Labs pending. Ceftriaxone for UTI concerns. 07/24/20 20:00 CT abdomen and pelvis without contrast shows no evidence of urinary calculi. Possible early changes of pancreatitis as well as a new L2 superior endplate compression fracture. Initially I was primarily can relate her back pain to the L2 superior endplate compression fracture although she had this identical pain prior to her evaluation in June. She did not have this L2 superior endplate compression fracture at that time and her pain is continued. Her pain could be related today to the L2 compression fracture which does appear to be acute on the CT scan although with the concerns of the pain that was there prior to this pathology as well as early changes of pancreatitis on the pancreas I would have concerns for such underlying pathology as pancreatic cancer. We will complete a lipase at this time to ensure that she does not have acute pancreatitis. Given 15 mg of Toradol IV push. As well as Zofran for nausea and vomiting which did not help much. She was also given Benadryl for nausea. Laboratory evaluation shows a normal white blood cell count at 8.5, hemoglobin is 16 with a normal platelet count. Normal sodium potassium. Creatinine is okay at 1.0 with a BUN of 11. Lactic acid 1.2. Total bili 1.0, AST 46, ALT normal at 34 and alkaline phosphatase mildly elevated at 197. CRP negative at 0.8. Urinalysis is positive for bilirubin small amount of blood ketones. Negative leukocytes negative nitrites. Many urinary yeast. The patient continued to have quite a bit of pain in her back and a little bit of nausea. She was given Benadryl and Dilaudid with complete resolution of her symptoms. She does feel quite a bit better. I did once again reviewed that I have concerns for other pathology other than just a Brenna cystitis the L2 superior endplate compression fracture but also the concerns for the chronic mid back pain and GI symptoms and the findings of change in morphology of the head of the pancreas for other underlying pathology. I want her to follow-up with her primary care this week for an MRI of the abdomen with pancreatic phasing. Until that time we will give her hydrocodone for pain Zofran for nausea and I also referred her to physical therapy due to the L2 endplate compression fracture. She was comfortable with this plan and her questions were answered. Departure - Departure Time of Disposition: 21:05 Disposition: Home, Self-Care 01 Clinical Impression: Brenna cystitis, Pancreas cyst Compression fx, lumbar spine Qualifiers: Encounter type: initial encounter Lumbar vertebra fracture level: L2 Qualified Code(s): S32.020A - Wedge compression fracture of second lumbar vertebra, ini tial encounter for closed fracture - Discharge Information Prescriptions: Fluconazole [Diflucan] 100 mg PO DAILY #14 tablet Instructions: Pain Medicine Instructions, [id number], Spinal Compression Fracture Referrals: Mac Novak NP [Primary Care Provider] - Forms: ED Department Discharge Additional Instructions: Tylenol as needed for pain. Increase fluids over the next few days. Ice to heat to the back which ever is best for you. See Physical therapy next week for your compression fracture in your back. Call sunday to refer yourself. For the yeast urinary tract infection. Fluconozole 1 tablet daily for 2 weeks. Dose for tomorrow sent home from the ED and [facility] the rest of the two weeks. Zofran, 1 tablet every 6 hrs as needed for nausea. Starter pack sent home from the ED. #2. If pain not controlled with above. [place] 1 tablet every 4-6 hrs with food as needed for pain. Caution sedation. Starter pack sent home from the ED. #10. Contact Mac on Sunday for recheck in the clinic this week. Consider an MRI of the pancreas with this chronic back pain prior to the compression fracture and the changes seen on the CT of the pancreas tonight. Return to the ED if new or worsening symptoms. - My Orders Last 24 Hours: My Active Orders 07/24/20 17:41 Peripheral IV Insertion Adult [OM.PC] Stat 07/24/20 17:42 Blood Culture x2 Reflex Set [OM.PC] Stat 07/24/20 17:52 CULTURE BLOOD [BC] Stat 07/24/20 18:03 CULTURE BLOOD [BC] Stat 07/24/20 18:32 Abdomen Pelvis wo Cont [CT] Stat - Assessment/Plan Last 24 Hours: My Active Orders 07/24/20 17:41 Peripheral IV Insertion Adult [OM.PC] Stat 07/24/20 17:42 Blood Culture x2 Reflex Set [OM.PC] Stat 07/24/20 17:52 CULTURE BLOOD [BC] Stat 07/24/20 18:03 CULTURE BLOOD [BC] Stat 07/24/20 18:32 Abdomen Pelvis wo Cont [CT] Stat
[2020-07-24] MEDS: Ondansetron 4 MG/2 ML SDV IV ONE (18:13)
[2020-07-24] MEDS: cefTRIAXone 1 GM Vial IVPUSH ONE (18:20)
[2020-07-24] MEDS: Sodium Chloride 0.9% 10 ML Syringe FLUSH PRN (18:21)
[2020-07-24 18:34] LABS: ANION GAP 15.3 mmol/L (5-15)
[2020-07-24] MEDS: Lactated Ringers 1,000 ML IV ONE (18:39)
[2020-07-24] MEDS: Ketorolac 30 MG/ML SDV IVPUSH ONE (18:39)
[2020-07-24] MEDS: diphenhydrAMINE 50 MG/ML SDV IVPUSH ONE (20:20)
[2020-07-24] MEDS: Lactated Ringers 1,000 ML IV SCH (20:20)
[2020-07-24] MEDS: Fluconazole 100 MG Tab PO ONE ×2 (20:25→21:22)
[2020-07-24] MEDS: HYDROmorphone 0.5 MG/0.5 ML Syringe IV ONE (20:25)
[2020-07-24] MEDS: Take Home: Ondansetron 4 MG Tab.DIS, 2 Tab Pack PO ONE (21:22)
[2020-07-24] MEDS: Take Home: Acetaminophen/HYDROcodone 325-5 MG, 5 Tab Pack PO ONE (21:22)
[2020-07-24] MEDS: Aspirin 81 MG Tab.Chew PO ONE (21:26)
--- NOTE | 2020-07-26 09:22 | CT ---
[id number] CT/CT Abdomen Pelvis WO IV EXAM: CT Abdomen Pelvis WO IV CLINICAL DATA: FLANK PAIN. LEFT HEMATURIA. ? STONE. COMPARISON STUDY: June 22, 2020 FINDINGS: Lung bases are clear. Liver demonstrates changes of diffuse steatosis. Spleen and adrenal glands are unremarkable. Cholecystectomy clips in the gallbladder fossa. Subtle hypodensity in the head of the pancreas with possible stranding not seen previously. No pancreas duct dilation. No urinary tract calculi or evidence of obstruction. Urinary bladder is decompressed but otherwise unremarkable. Hysterectomy. Adnexal regions are unremarkable. Previously seen mesenteric twist in the right lower quadrant is no longer visualized. Location of the cecum and ileocecal valve has moved to the midline. This was not seen previously. However, there is no evidence of bowel obstruction, volvulus, or other significant abnormality. Findings are of uncertain etiology or clinical significance. No free fluid or fluid collections. No lymphadenopathy. No pneumoperitoneum.. Since the prior examination, there is a new superior endplate compression deformity of L2. Mild amount of stranding in the paraspinal soft tissues suggests an acute fracture. IMPRESSION: No evidence of urinary tract calculi or obstruction. Possible mild/early changes of pancreatitis in the pancreas head not seen previously. New L2 superior endplate compression fracture with mild loss of vertebral body height. Finding were not seen previously. Stranding adjacent to the abnormal vertebral body suggests an acute fracture. Correlate for back pain. Other findings are described above. Torres Eaton MD 07/26/20 1679 Thank you for allowing us to participate in the care of your patient.
== END 2020-07-24 21:38 | disposition home or self-care (01) ==
LOC: VM.ED 17:27
DX: S32.029A Unspecified fracture of second lumbar vertebra, initial encounter for closed fracture (principal); K86.2 Cyst of pancreas; B37.41 Candidal cystitis and urethritis; I48.91 Unspecified atrial fibrillation; E78.00 Pure hypercholesterolemia, unspecified; I11.0 Hypertensive heart disease with heart failure; I50.9 Heart failure, unspecified; Z86.73 Personal history of transient ischemic attack (TIA), and cerebral infarction without residual deficits; Z88.8 Allergy status to other drugs, medicaments and biological substances; Z88.1 Allergy status to other antibiotic agents; Z91.048 Other nonmedicinal substance allergy status; Z91.041 Radiographic dye allergy status; Z79.82 Long term (current) use of aspirin; Z79.01 Long term (current) use of anticoagulants; Z79.899 Other long term (current) drug therapy; W10.9XXA Fall (on) (from) unspecified stairs and steps, initial encounter
CPT/HCPCS: 36415; 74176; 80053; 81001; 83605; 83690; 85025; 86140; 87040; 96374; 96375; 99284; 99284-25; A9270-GY; J0696; J1170; J1200; J1885; J2405; J7120

== ENCOUNTER 2021-08-25 04:02 | Emergency (ER) | payer MEDICARE, BC ==
[2021-08-25] MEDS ORDERED: Aspirin 81 MG Tab.Chew PO ONE (04:51)
[2021-08-25 05:33] LABS: PTT,PARTIAL THROMBOPLSTIN TIME 25.1 SEC (20.5-30.9)
[2021-08-25 05:38] LABS: ANION GAP 12.8 mmol/L (5-15)
[2021-08-25] MEDS ORDERED: Nitroglycerin 0.4 MG Tab.SL SL ONE ×2 (07:20→07:41)
[2021-08-25] MEDS ORDERED: Heparin Sodium/0.45% NaCl 25,000 UNITS/500 ML BAG IV SCH (08:00)
[2021-08-25] MEDS ORDERED: Heparin Sodium 5,000 Units/ML Vial IVPUSH ONE (08:00)
[2021-08-25] MEDS ORDERED: Nitroglycerin/D5W 25 MG/250 ML BOTTLE IV SCH (08:30)
[2021-08-25] MEDS ORDERED: Morphine 2 MG/ML SYRINGE IVPUSH ONE (09:09)
== END 2021-08-25 09:45 | disposition short-term general hospital (02) ==
LOC: VM.ED 04:02
DX: I21.4 Non-ST elevation (NSTEMI) myocardial infarction (principal); I48.91 Unspecified atrial fibrillation; I11.0 Hypertensive heart disease with heart failure; I50.9 Heart failure, unspecified; E03.9 Hypothyroidism, unspecified; Z95.0 Presence of cardiac pacemaker; Z86.73 Personal history of transient ischemic attack (TIA), and cerebral infarction without residual deficits; Z91.041 Radiographic dye allergy status; Z91.048 Other nonmedicinal substance allergy status; Z88.8 Allergy status to other drugs, medicaments and biological substances; Z79.82 Long term (current) use of aspirin; Z79.899 Other long term (current) drug therapy
CPT/HCPCS: 36415; 71046; 80053; 83880; 84484; 85025; 85610; 85730; 93005; 93010; 94760; 96365; 96368; 99285; 99285-25; A9270-GY; J1644; J3490

== ENCOUNTER 2021-12-27 06:13 | Emergency (ER) | payer MEDICARE, BC ==
[2021-12-27] MEDS ORDERED: Lactated Ringers 1,000 ML IV ONE (07:00)
[2021-12-27 07:49] LABS: CHLORIDE,CL 97 mmol/L (98-107); SODIUM,NA 133 mmol/L (136-145)
[2021-12-27 07:50] LABS: ANION GAP 10.5 mmol/L (5-15); ESTIMATED GFR 64 mL/min (>=60)
== END 2021-12-27 10:22 | disposition home or self-care (01) ==
LOC: VM.ED 06:13
DX: R00.2 Palpitations (principal); N39.0 Urinary tract infection, site not specified; I11.0 Hypertensive heart disease with heart failure; I50.9 Heart failure, unspecified; Z88.8 Allergy status to other drugs, medicaments and biological substances; Z91.048 Other nonmedicinal substance allergy status; Z91.041 Radiographic dye allergy status; Z79.899 Other long term (current) drug therapy; Z79.82 Long term (current) use of aspirin; Z79.01 Long term (current) use of anticoagulants; Z86.73 Personal history of transient ischemic attack (TIA), and cerebral infarction without residual deficits
CPT/HCPCS: 36415; 71046; 80053; 81001; 83735; 83880; 84100; 84443; 84484; 85025; 85610; 85730; 86140; 87086; 87088; 87186; 93005; 93010; 96360; 99285; 99285-25; J7120

== ENCOUNTER 2022-02-23 10:28 | Emergency (ER) | payer MEDICARE, BC ==
[2022-02-23] MEDS ORDERED: Ketorolac 30 MG/ML SDV IM ONE (10:44)
[2022-02-23] MEDS ORDERED: Orphenadrine 60 MG/2 ML Inj IM ONE (10:44)
== END 2022-02-23 12:10 | disposition home or self-care (01) ==
LOC: VM.ED 10:28
DX: M25.552 Pain in left hip (principal); I11.0 Hypertensive heart disease with heart failure; I50.9 Heart failure, unspecified; Z88.8 Allergy status to other drugs, medicaments and biological substances; Z91.048 Other nonmedicinal substance allergy status; Z91.041 Radiographic dye allergy status; Z79.899 Other long term (current) drug therapy; Z79.82 Long term (current) use of aspirin; Z79.01 Long term (current) use of anticoagulants
CPT/HCPCS: 96372; 99284; J1885; J2360

== ENCOUNTER 2022-07-19 02:35 | Emergency (ER) | payer MEDICARE, BC ==
[2022-07-19] MEDS ORDERED: Sodium Chloride 0.9% 10 ML Syringe FLUSH PRN (03:22)
[2022-07-19 04:21] LABS: CHLORIDE,CL 98 mmol/L (98-107); SODIUM,NA 139 mmol/L (136-145)
[2022-07-19 04:31] LABS: ANION GAP 13.5 mmol/L (5-15); ESTIMATED GFR 57 mL/min (>=60)
== END 2022-07-19 05:12 | disposition home or self-care (01) ==
LOC: VM.ED 02:35
DX: R07.89 Other chest pain (principal); R42 Dizziness and giddiness; I11.0 Hypertensive heart disease with heart failure; I50.9 Heart failure, unspecified; Z88.8 Allergy status to other drugs, medicaments and biological substances; Z91.041 Radiographic dye allergy status; Z91.048 Other nonmedicinal substance allergy status; Z79.899 Other long term (current) drug therapy; Z79.82 Long term (current) use of aspirin; Z79.01 Long term (current) use of anticoagulants
CPT/HCPCS: 36415; 71046; 80053; 83880; 84484; 85025; 85610; 86140; 93005; 93010; 99284; 99285

== ENCOUNTER 2024-07-18 06:23 | Emergency (ER) | payer MEDICARE, BC ==
[2024-07-18 07:08] LABS: HCO3 VENOUS,POC 26 mmol/L (22-29); O2 SATURATION VENOUS,POC 79 %; PCO2 VENOUS,POC 44 mmHg (41-51); PH VENOUS,POC 7.38 pH (7.32-7.43); PO2 VENOUS,POC 44 mmHg
[2024-07-18 07:13] LABS: BASOPHILS PERCENT AUTO 0.3 % (0.2-1.2); EOSINOPHILS ABSOLUTE AUTO 0.2 x10^3/uL (0.0-0.5); EOSINOPHILS PERCENT AUTO 3.4 % (0.0-4.0); HEMATOCRIT 40.3 % (33.0-47.0); HEMOGLOBIN 13.6 g/dL (12.0-16.0); IMMATURE GRAN ABSOLUTE AUTO 0.01 x10^3/uL (0.00-0.07); LYMPHOCYTES ABSOLUTE AUTO 0.7 x10^3/uL (1.0-4.8); LYMPHOCYTES PERCENT AUTO 11.4 % (25.0-50.0); MEAN CORPUSCULAR HEMOGLOBIN 32.5 pg (26.0-32.0); MEAN CORPUSCULAR HGB CONC 33.7 g/dL (32.0-36.0); MEAN CORPUSCULAR VOLUME 96.4 fL (78.0-93.0); MONOCYTES ABSOLUTE AUTO 0.5 x10^3/uL (0.0-0.8); MONOCYTES PERCENT AUTO 8.5 % (2.0-11.0); NEUTROPHILS ABSOLUTE AUTO 4.9 x10^3/uL (1.8-7.7); NEUTROPHILS PERCENT AUTO 76.2 % (50.0-80.0); PLATELET COUNT,PLT 242 x10^3/uL (130-400); RED BLOOD CELL COUNT 4.18 x10^6/uL (4.00-5.50); WHITE BLOOD CELL COUNT,WBC 6.4 x10^3/uL (4.0-10.0)
[2024-07-18 07:29] LABS: A/G RATIO 1.12; ALBUMIN 3.8 g/dL (3.4-5.0); CALCIUM 9.2 mg/dL (8.5-10.1); EST CRCL DRUG DOSING (CG) 36.81 mL/min; POTASSIUM,K 3.5 mmol/L (3.5-5.1); PROTEIN TOTAL,TP 7.2 g/dL (6.4-8.2)
[2024-07-18 07:31] LABS: ANION GAP 13.5 mmol/L (5-15)
== END 2024-07-18 09:13 | disposition home or self-care (01) ==
LOC: VM.ED 06:23
DX: J18.9 Pneumonia, unspecified organism (principal); I11.0 Hypertensive heart disease with heart failure; I50.9 Heart failure, unspecified; E78.00 Pure hypercholesterolemia, unspecified; E03.9 Hypothyroidism, unspecified; Z79.899 Other long term (current) drug therapy; Z79.890 Hormone replacement therapy; Z79.82 Long term (current) use of aspirin; Z91.048 Other nonmedicinal substance allergy status; Z88.5 Allergy status to narcotic agent; Z88.8 Allergy status to other drugs, medicaments and biological substances
CPT/HCPCS: 71045; 80053; 82803; 83605; 83880; 84484; 85025; 87428-QW; 93010; 99284; 99285

== ENCOUNTER 2024-09-28 14:13 | Emergency (ER) | payer MEDICARE, BC ==
[2024-09-28] MEDS ORDERED: Sodium Chloride 0.9% 10 ML Syringe FLUSH PRN (14:23)
[2024-09-28] MEDS ORDERED: Acetaminophen 325 MG Tab PO ONE (14:26)
[2024-09-28] MEDS ORDERED: Sodium Chloride 0.9% 1,000 ML IV ONE (14:27)
[2024-09-28 14:58] LABS: BASOPHILS PERCENT AUTO 0.3 % (0.2-1.2); EOSINOPHILS PERCENT AUTO 0.2 % (0.0-4.0); HEMATOCRIT 46.9 % (33.0-47.0); HEMOGLOBIN 15.9 g/dL (12.0-16.0); IMMATURE GRAN ABSOLUTE AUTO 0.02 x10^3/uL (0.00-0.07); LYMPHOCYTES ABSOLUTE AUTO 0.8 x10^3/uL (1.0-4.8); LYMPHOCYTES PERCENT AUTO 5.8 % (25.0-50.0); MEAN CORPUSCULAR HEMOGLOBIN 32.2 pg (26.0-32.0); MEAN CORPUSCULAR HGB CONC 33.9 g/dL (32.0-36.0); MEAN CORPUSCULAR VOLUME 94.9 fL (78.0-93.0); MONOCYTES ABSOLUTE AUTO 1.2 x10^3/uL (0.0-0.8); MONOCYTES PERCENT AUTO 8.5 % (2.0-11.0); NEUTROPHILS PERCENT AUTO 85.1 % (50.0-80.0); PLATELET COUNT,PLT 206 x10^3/uL (130-400); RED BLOOD CELL COUNT 4.94 x10^6/uL (4.00-5.50); WHITE BLOOD CELL COUNT,WBC 14.1 x10^3/uL (4.0-10.0)
[2024-09-28] MEDS ORDERED: Morphine 2 MG/ML SYRINGE IVPUSH ONE (15:00)
[2024-09-28 15:17] LABS: PROTHROMBIN TIME 10.4 SEC (9.6-12.0); PTT,PARTIAL THROMBOPLSTIN TIME 25.8 SEC (23.5-33.2)
[2024-09-28 15:24] LABS: APPEARANCE,URINE CLEAR (CLEAR); BILIRUBIN,URINE NEGATIVE (NEGATIVE); COLOR,URINE YELLOW (YELLOW); GLUCOSE,URINE 500 mg/dL (NEGATIVE); KETONES,URINE NEGATIVE (NEGATIVE); LEUKOCYTE ESTERASE,URINE NEGATIVE (NEGATIVE); NITRITE,URINE NEGATIVE (NEGATIVE); OCCULT BLOOD,URINE SMALL (NEGATIVE); PROTEIN,URINE 30 mg/dL (NEGATIVE); UROBILINOGEN,URINE 0.2 EU/dL (0.2)
[2024-09-28 15:29] LABS: A/G RATIO 1.08; ALANINE AMINOTRANSFERASE,ALT 26 U/L (14-59); ALKALINE PHOSPHATASE 153 U/L (46-116); ASPARTATE AMNIOTRANSFERASE,AST 50 U/L (15-37); BILIRUBIN TOTAL 1.5 mg/dL (0.2-1.0); BLOOD UREA NITROGEN,BUN 12 mg/dL (7-18); CALCIUM 9.3 mg/dL (8.5-10.1); CARBON DIOXIDE,CO2 31 mmol/L (21-32); CHLORIDE,CL 102 mmol/L (98-107); GLUCOSE RANDOM 101 mg/dL (70-99); MAGNESIUM 2.2 mg/dL (1.8-2.4); POTASSIUM,K 3.6 mmol/L (3.5-5.1); PROTEIN TOTAL,TP 7.7 g/dL (6.4-8.2); SODIUM,NA 142 mmol/L (136-145)
[2024-09-28] MEDS ORDERED: Morphine 4 MG/ML Syringe IVPUSH ONE (15:31)
[2024-09-28 15:33] LABS: ANION GAP 12.6 mmol/L (5-15); ESTIMATED GFR 56 mL/min (>=60)
[2024-09-28] MEDS ORDERED: cefTRIAXone 2 GM Vial IVPUSH ONE (15:33)
[2024-09-28] MEDS ORDERED: Azithromycin 500 MG in Sodium Chloride 0.9% 250 ML IV ONE (15:33)
[2024-09-28 15:34] LABS: CREATINE KINASE,CK 1500 U/L (26-192)
[2024-09-28] MEDS ORDERED: Clindamycin Phosphate in D5W 600 MG in Premix Bag 1 BAG IV ONE (15:34)
[2024-09-28 15:36] LABS: BACTERIA,URINE NOT SEEN /HPF (NOT SEEN); HYALINE CASTS,URINE RARE; MUCUS,URINE NOT SEEN /LPF (NOT SEEN); RBC,URINE NOT SEEN /HPF (NOT SEEN); SQUAMOUS EPITHELIAL CELLS,UR RARE /HPF (NOT SEEN); WBC,URINE NOT SEEN /HPF (NOT SEEN)
[2024-09-28] MEDS: Diphtheria,Pertussis(Acell),Tetanus Vaccine 0.5 ML Syringe IM ONE (16:19)
== END 2024-09-28 16:33 | disposition short-term general hospital (02) ==
LOC: VM.ED 14:13
DX: S06.9X9A Unspecified intracranial injury with loss of consciousness of unspecified duration, initial encounter (principal); S00.03XA Contusion of scalp, initial encounter; S70.01XA Contusion of right hip, initial encounter; T79.6XXA Traumatic ischemia of muscle, initial encounter; J69.0 Pneumonitis due to inhalation of food and vomit; G45.9 Transient cerebral ischemic attack, unspecified; Z23 Encounter for immunization; I11.0 Hypertensive heart disease with heart failure; I50.9 Heart failure, unspecified; E78.00 Pure hypercholesterolemia, unspecified; E03.9 Hypothyroidism, unspecified; Z79.899 Other long term (current) drug therapy; Z79.82 Long term (current) use of aspirin; Z91.048 Other nonmedicinal substance allergy status; Z88.8 Allergy status to other drugs, medicaments and biological substances; W18.30XA Fall on same level, unspecified, initial encounter
CPT/HCPCS: 36415; 51702; 70450; 71250; 72125; 73030-LT; 73610-50; 74176; 80053; 81001; 82550; 83615; 83735; 83874; 84484; 85025; 85610; 85730; 87040; 90471; 90715; 93010; 96374; 96375; 96376; 99284; 99285-25; A9270-GY; J0456; J0696; J2270; J7030